=== PATIENT | male | born 1970 | race Caucasian/White ===

== ENCOUNTER 2017-04-25 22:24 | Emergency (ER) | payer SELFPAY ==
[2017-04-25] MEDS ORDERED: ASPIRIN 81 MG TABLET, CHEWABLE PO ONE (22:40)
[2017-04-25 23:13] LABS: ABSOLUTE EOSINOPHILS # (AUTO) 0.1 10^3/uL (0.0-0.6); ABSOLUTE LYMPHOCYTES (AUTO) 1.8 10^3/uL (0.5-4.7); ABSOLUTE MONOCYTES (AUTO) 0.8 10^3/uL (0.1-1.4); ABSOLUTE NEUT (AUTO) 5.8 10^3/uL (1.7-8.2); BASOPHILS % (AUTO) 0.5 % (0-2); EOSINOPHILS % (AUTO) 1.2 % (0-6); HEMATOCRIT 51.9 % (37.9-51.0); HEMOGLOBIN 17.3 g/dL (13.5-17.0); MEAN CORPUSCULAR HEMOGLOBIN 36.7 pg (27.0-33.4); MEAN CORPUSCULAR HGB CONC 33.3 g/dL (32.0-36.0); MEAN CORPUSCULAR VOLUME 110 fl (80-97); MONOCYTES % (AUTO) 9.5 % (3-13); RED BLOOD COUNT 4.72 10^6/uL (4.35-5.55); SEGMENTED NEUTROPHILS % (AUTO) 67.8 % (42-78); WHITE BLOOD COUNT 8.6 10^3/uL (4.0-10.5)
[2017-04-25 23:30] LABS: ALANINE AMINOTRANSFERASE 31 U/L (21-72); ALBUMIN 4.4 g/dL (3.5-5.0); ALKALINE PHOSPHATASE 59 U/L (38-126); ANION GAP 13 (5-19); ASPARTATE AMINO TRANSFERASE 24 U/L (17-59); BILIRUBIN,DIRECT 0.4 mg/dL (0.0-0.4); BILIRUBIN,TOTAL 0.5 mg/dL (0.2-1.3); BLOOD UREA NITROGEN 13 mg/dL (7-20); CALCIUM 9.7 mg/dL (8.4-10.2); CARBON DIOXIDE 25 mmol/L (22-30); CHLORIDE 105 mmol/L (98-107); CREATINE KINASE 82 U/L (55-170); CREATININE RESULT 0.85 mg/dL (0.52-1.25); GLUCOSE 130 mg/dL (75-110); POTASSIUM 4.4 mmol/L (3.6-5.0); SODIUM 142.9 mmol/L (137-145); TOTAL PROTEIN 7.8 g/dL (6.3-8.2)
[2017-04-25 23:40] LABS: CREATINE KINASE MB 0.87 ng/mL (<4.55)
[2017-04-25 23:41] LABS: TROPONIN I < 0.012 ng/mL
--- NOTE | 2017-04-26 00:56 | RADIOLOGY REPORT (SQ) ---
EXAM DESCRIPTION: CHEST SINGLE VIEW COMPLETED DATE/TIME: 04/26/2017 12:35 am REASON FOR STUDY: chest pain COMPARISON: 4.3.11 EXAM PARAMETERS: NUMBER OF VIEWS: One view. TECHNIQUE: Single frontal radiographic view of the chest acquired. RADIATION DOSE: NA LIMITATIONS: None. FINDINGS: LUNGS AND PLEURA: No opacities, masses or pneumothorax. No pleural effusion. MEDIASTINUM AND HILAR STRUCTURES: No masses. Contour normal. HEART AND VASCULAR STRUCTURES: Heart normal in size. Normal vasculature. BONES: No acute findings. HARDWARE: None in the chest. OTHER: No other significant finding. IMPRESSION: NO ACUTE RADIOGRAPHIC FINDING IN THE CHEST. TECHNICAL DOCUMENTATION: JOB ID: [id number]
[2017-04-26] MEDS ORDERED: NORMAL SALINE 1000 ML 1,000 ML IV PRN (01:32)
[2017-04-26] MEDS ORDERED: MAG HYDROX/AL HYDROX/SIMETH SUSP 30 ML UDCUP PO ONE (01:58)
[2017-04-26] MEDS ORDERED: LIDOCAINE 2% VISCOUS SOLN 20 ML UDCUP PO ONE (01:58)
[2017-04-26] MEDS ORDERED: METOCLOPRAMIDE HCL ORAL SOLN 10 MG/10 ML UDCUP PO ONE (01:58)
--- NOTE | 2017-04-26 04:19 | ER Document Report ---
ED General - General Chief Complaint: Chest Pain Stated Complaint: CHEST PAIN Time Seen by Provider: 04/26/17 01:32 TRAVEL OUTSIDE OF THE [place] IN LAST 30 DAYS: No - HPI Patient complains to provider of: Chest pain Notes: Patient coming in for evaluation of chest pain. Patient states started approximately around 9:00 this night for no chest problem patient become diaphoretic. Denies any past heart history denies any medical history does not take any medications. Patient currently states chest pain-free only have an acid reflux. Patient states history of acid reflux which he takes Pepto- Bismol. Patient does smoke denies any alcohol denies any drugs. Patient also denies any fevers chills nausea vomiting diarrhea denies any shortness of breath patient denies any recent travel. - Related Data Allergies/Adverse Reactions: No Known Allergies Allergy (Verified 08/24/12 11:16) Past Medical History - Social History Smoking Status: Unknown if Ever Smoked Family History: Reviewed & Not Pertinent Patient has suicidal ideation: No Patient has homicidal ideation: No - Past Medical History Cardiac Medical History: Reports: Hx Hypercholesterolemia, Hx Hypertension Renal/ Medical History: Denies: Hx Peritoneal Dialysis - Immunizations Hx Diphtheria, Pertussis, Tetanus Vaccination: No Review of Systems - Review of Systems Constitutional: No symptoms reported EENT: No symptoms reported Cardiovascular: Chest pain Respiratory: No symptoms reported Gastrointestinal: No symptoms reported Genitourinary: No symptoms reported Male Genitourinary: No symptoms reported Musculoskeletal: No symptoms reported Skin: No symptoms reported Hematologic/Lymphatic: No symptoms reported Neurological/Psychological: No symptoms reported -: Yes All other systems reviewed and negative Physical Exam - Vital signs Vitals: Temp Pulse Resp BP Pulse Ox 98.2 F 119 H 20 162/90 H 98 04/25/17 22:36 04/25/17 22:36 04/25/17 22:36 04/25/17 22:36 04/25/17 22:36 Interpretation: Normal - General General appearance: Appears well, Alert - HEENT Head: Normocephalic, Atraumatic Eyes: Normal Pupils: PERRL - Respiratory Respiratory status: No respiratory distress Chest status: Nontender Breath sounds: Normal Chest palpation: Normal - Cardiovascular Rhythm: Regular Heart sounds: Normal auscultation Murmur: No - Abdominal Inspection: Normal Distension: No distension Bowel sounds: Normal Tenderness: Nontender Organomegaly: No organomegaly - Back Back: Normal, Nontender - Extremities General upper extremity: Normal inspection, Nontender, Normal color, Normal ROM , Normal temperature General lower extremity: Normal inspection, Nontender, Normal color, Normal ROM , Normal temperature, Normal weight bearing. No: Óscar's sign - Neurological Neuro grossly intact: Yes Cognition: Normal Orientation: AAOx4 [place] Coma Scale Eye Opening: Spontaneous [place] Coma Scale Verbal: Oriented Joanna Coma Scale Motor: Obeys Commands [place] Coma Scale Total: 15 Speech: Normal Motor strength normal: LUE, RUE, LLE, RLE Sensory: Normal - Psychological Associated symptoms: Normal affect, Normal mood - Skin Skin Temperature: Warm Skin Moisture: Dry Skin Color: Normal Course - Re-evaluation Re-evalutation: 04/26/17 04:29 Initial EKG showed sinus tachycardia. Patient's lab work shows signs of dehydration. The initial troponin was negative. Initially want to give the patient IV fluids however he refused patient while waiting for second troponin did continue to drink water second troponin also returned negative. Patient has been asymptomatic during his time here. As reflux has gotten better with GI cocktail. Possible etiology is pain esophageal spasm related to his reflux. Patient he will need a follow-up primary care physician for further evaluation and testing. This time patient repeat EKG shows now a normal sinus rhythm patient will be discharged home. The patient has atypical chest pain as the patient's chest pain is not suggestive of pulmonary embolus, cardiac ischemia, aortic dissection, or other serious etiology. Given the extremely low risk of these diagnoses further testing and evaluation for these possibilities does not appear to be indicated at this time. The patient has been instructed to return if the symptoms worsen or change in any way. - Vital Signs Vital signs: Temp Pulse Resp BP Pulse Ox 98.2 F 119 H 20 162/90 H 98 04/25/17 22:36 04/25/17 22:36 04/25/17 22:36 04/25/17 22:36 04/26/17 01:09 - Laboratory Result Diagrams: 04/25/17 22:58 04/25/17 22:58 Laboratory results interpreted by me: 04/25/17 04/25/17 22:58 22:58 Hgb 17.3 H Hct 51.9 H MCV 110 H MCH 36.7 H Glucose 130 H Discharge - Discharge Clinical Impression: Chest pain unclear etiology Acid reflux Qualifiers: Esophagitis presence: esophagitis presence not specified Qualified Code(s): K21.9 - Gastro-esophageal reflux disease without esophagitis Condition: Good Disposition: HOME, SELF-CARE Instructions: Reflux Disease (GERD) ([facility]), Chest Pain of Unclear Cause ([facility]), Family Physicians / Practices Additional Instructions: Your laboratory studies today EKG did not show any signs of heart damage. Your laboratory studies do show signs of significant dehydration. However recommend she continue to drink plenty water to stay hydrated. Please make sure to follow -up with primary care physician. Return to the ER for worsening of symptoms. We will start you on a medication called Prilosec for acid reflux. Prescriptions: Omeprazole 20 mg PO DAILY #30 capsule.dr Forms: Smoking Cessation Education, Return to Work
[2017-04-26 06:36] VITALS: BP 145/67
--- NOTE | 2017-04-26 11:25 | EKG REPORT ---
SEVERITY:- NORMAL ECG - SINUS RHYTHM : Confirmed by: Tom Kent 26-Apr-2017 11:24:40
--- NOTE | 2017-04-26 11:25 | EKG REPORT ---
SEVERITY:- OTHERWISE NORMAL ECG - SINUS TACHYCARDIA : Confirmed by: Tom Kent 26-Apr-2017 11:24:49
== END 2017-04-26 04:34 | disposition home or self-care (01) ==
LOC: ER 22:24
DX: R07.9 Chest pain, unspecified (principal); K21.9 Gastro-esophageal reflux disease without esophagitis; E78.00 Pure hypercholesterolemia, unspecified; I10 Essential (primary) hypertension
CPT/HCPCS: 93005 ×2; 99285; 36415; 82553; 82550; 85025; 80053; 84484; 71010; 93010 ×2; J3490

== ENCOUNTER 2018-12-20 07:59 | Inpatient (IN) | payer SELFPAY ==
[2018-12-20] MEDS ORDERED: NAPROXEN 250 MG TABLET PO ONE (09:12)
--- NOTE | 2018-12-20 10:00 | ER Document Report ---
ED Medical Screen (RME) - General Chief Complaint: Flu Symptoms Stated Complaint: COUGH Time Seen by Provider: 12/20/18 09:04 Mode of Arrival: Ambulatory Information source: Patient Notes: 48-year-old male presents to ED for flulike symptoms times a week. He states he has been experiencing a nonproductive cough chills, sweats with no improvement. He states he has been taken [id number] medications with no improvement. He denies any other complications. He is alert oriented respirations regular and even speaking in full sentences. He states that his O2 sat upfront was 87 and then they got it at 97. He states he is feeling a little short of breath. I had assessed the man with clear lung sounds sending for chest x-ray and a flu test when the staff came and told me that he was getting more short of breath. I rechecked his O2 sat and it was 86 had him cough and it was still 86 I have upgraded him to be seen by 1 of the providers on the main ED and ordered blood work for him. He states his only medical history is a fractured thumb he was smoking a pack a day until a week ago when he stopped he was also drinking until a week ago when he stopped. I have greeted and performed a rapid initial assessment of this patient. A comprehensive ED assessment and evaluation of the patient, analysis of test results and completion of medical decision making process will be conducted by an additional ED providers. TRAVEL OUTSIDE OF THE [place] IN LAST 30 DAYS: No - Related Data Allergies/Adverse Reactions: No Known Allergies Allergy (Verified 12/20/18 08:01) Past Medical History - Social History Frequency of alcohol use: None Drug Abuse: None - Past Medical History Cardiac Medical History: Reports: Hx Hypercholesterolemia, Hx Hypertension Renal/ Medical History: Denies: Hx Peritoneal Dialysis - Immunizations Hx Diphtheria, Pertussis, Tetanus Vaccination: No Physical Exam - Vital signs Vitals: Temp Pulse Resp BP Pulse Ox 98.8 F 100 18 90/71 L 97 12/20/18 08:04 12/20/18 08:04 12/20/18 08:04 12/20/18 08:04 12/20/18 08:04 Course - Vital Signs Vital signs: Temp Pulse Resp BP Pulse Ox 98.8 F 100 18 105/52 L 97 12/20/18 08:04 12/20/18 08:04 12/20/18 08:04 12/20/18 09:35 12/20/18 08:04
[2018-12-20 10:06] LABS: A TYPE INFLUENZA AG NEGATIVE (NEGATIVE); B INFLUENZA AG NEGATIVE (NEGATIVE)
--- NOTE | 2018-12-20 10:06 | RADIOLOGY REPORT (SQ) ---
EXAM DESCRIPTION: CHEST 2 VIEWS COMPLETED DATE/TIME: 12/20/2018 9:50 am REASON FOR STUDY: cough COMPARISON: Chest films 04/26/2017, 01/26/2011 EXAM PARAMETERS: NUMBER OF VIEWS: two views TECHNIQUE: Digital Frontal and Lateral radiographic views of the chest acquired. RADIATION DOSE: NA LIMITATIONS: none FINDINGS: LUNGS AND PLEURA: Diffuse bilateral upper lobe airspace disease is present worrisome for p neumonia. No pleural effusions. No pneumothorax. MEDIASTINUM AND HILAR STRUCTURES: No masses or contour abnormalities. HEART AND VASCULAR STRUCTURES: Heart normal size. No evidence for failure. BONES: No acute findings. HARDWARE: None in the chest. OTHER: No other significant finding. IMPRESSION: Diffuse bilateral upper lobe airspace disease worrisome for pneumonia. TECHNICAL DOCUMENTATION: JOB ID: [id number] [employer]- All Rights Reserved Reading location - IP/workstation name: [email or web address]
[2018-12-20 10:29] LABS: HEMATOCRIT 42.9 % (37.9-51.0); HEMOGLOBIN 15.3 g/dL (13.5-17.0); MEAN CORPUSCULAR HGB CONC 35.7 g/dL (32.0-36.0); MEAN CORPUSCULAR VOLUME 104 fl (80-97); PLATELET COUNT 113 10^3/uL (150-450); RED BLOOD COUNT 4.13 10^6/uL (4.35-5.55); RED CELL DISTRIBUTION WIDTH 12.3 % (11.5-14.0); WHITE BLOOD COUNT 3.6 10^3/uL (4.0-10.5)
[2018-12-20 10:52] LABS: ALANINE AMINOTRANSFERASE 35 U/L (21-72); ALBUMIN 3.7 g/dL (3.5-5.0); ALKALINE PHOSPHATASE 59 U/L (38-126); ANION GAP 7 (5-19); ASPARTATE AMINO TRANSFERASE 82 U/L (17-59); BILIRUBIN,DIRECT 0.4 mg/dL (0.0-0.4); BILIRUBIN,TOTAL 0.7 mg/dL (0.2-1.3); BLOOD UREA NITROGEN 14 mg/dL (7-20); CALCIUM 8.3 mg/dL (8.4-10.2); CARBON DIOXIDE 31 mmol/L (22-30); CHLORIDE 98 mmol/L (98-107); CREATINE KINASE 1341 U/L (55-170); GLUCOSE 101 mg/dL (75-110); POTASSIUM 3.4 mmol/L (3.6-5.0); SODIUM 135.9 mmol/L (137-145); TOTAL PROTEIN 6.6 g/dL (6.3-8.2)
[2018-12-20 10:54] LABS: ABSOLUTE LYMPHOCYTES# (MANUAL) 0.1 10^3/uL (0.5-4.7); ABSOLUTE NEUTROPHILS# (MANUAL) 3.4 10^3/uL (1.7-8.2); BAND NEUTROPHILS % (MANUAL) 10 % (3-5); BASOPHILS % (MANUAL) 0 % (0-2); EOSINOPHILS % (MANUAL) 0 % (0-6); LYMPHOCYTES % (MANUAL) 2 % (13-45); METAMYELOCYTES % (MANUAL) 1 % (0); MONOCYTES % (MANUAL) 1 % (3-13); SEGMENTED NEUTROPHILS % (MAN) 84 % (42-78); TOTAL CELLS COUNTED 100
[2018-12-20 10:55] LABS: PLATELET COMMENT DECREASED; TOXIC VACUOLATION PRESENT
[2018-12-20 11:01] LABS: CREATINE KINASE MB 4.52 ng/mL (<4.55); TROPONIN I < 0.012 ng/mL
[2018-12-20] MEDS ORDERED: CEFTRIAXONE 1 GM/D5W RTU 1 GM/50 ML RTUPB IV ONE (11:37)
--- NOTE | 2018-12-20 11:43 | ER Document Report ---
ED General - General Chief Complaint: Flu Symptoms Stated Complaint: COUGH Time Seen by Provider: 12/20/18 09:04 Mode of Arrival: Ambulatory Notes: Patient says he began getting sick last Thursday with a cough, mostly nonproductive. It lasted Thursday and and then went away until it came back on yesterday. He is not had a fever. Patient does have a history of 1/2 pack a day cigarette smoking until last week when he "stopped". Denies any chest pains. Denies any abdominal pains. Denies fever. No significant past medical history. No heart disease. In triage, patient's oxygen saturation was noted to be 86%. Patient reports feeling short of breath frequently and getting lightheaded at times. TRAVEL OUTSIDE OF THE [place] IN LAST 30 DAYS: No - Related Data Allergies/Adverse Reactions: No Known Allergies Allergy (Verified 12/20/18 08:01) Past Medical History - General Information source: Patient - Social History Smoking Status: Current Every Day Smoker Frequency of alcohol use: None Drug Abuse: None Family History: Reviewed & Not Pertinent Patient has suicidal ideation: No Patient has homicidal ideation: No - Past Medical History Cardiac Medical History: Reports: Hx Hypercholesterolemia, Hx Hypertension Pulmonary Medical History: Reports: None Denies: Hx COPD - Immunizations Hx Diphtheria, Pertussis, Tetanus Vaccination: No Review of Systems - Review of Systems Notes: REVIEW OF SYSTEMS: CONSTITUTIONAL : Denies fever. EENT: Denies eye, ear, nose or mouth or throat pain or other symptoms. CARDIOVASCULAR: Denies chest pain. RESPIRATORY: See HPI. GASTROINTESTINAL: Denies abdominal pain or nausea, vomiting, or diarrhea. GENITOURINARY: Denies difficulty or painful urinating, urinary frequency, blood in urine. MUSCULOSKELETAL: Denies back or neck pain. Denies joint pain or swelling. SKIN: Denies rash or skin lesions. NEUROLOGICAL: Denies LOC or altered mental status. Denies headache. Denies sensory loss or motor deficits. ALL OTHER SYSTEMS REVIEWED AND NEGATIVE. Physical Exam - Vital signs Vitals: Temp Pulse Resp BP Pulse Ox 98.8 F 100 18 90/71 L 97 12/20/18 08:04 12/20/18 08:04 12/20/18 08:04 12/20/18 08:04 12/20/18 08:04 Interpretation: Hypotensive - 90/71 in triage. - Notes Notes: PHYSICAL EXAMINATION: GENERAL: Well-appearing, in no acute distress. O2 sat 97% on 2 L oxygen. HEAD: Atraumatic, normocephalic. EYES: Pupils equal round and reactive to light, extraocular movements intact. ENT: oropharynx clear without exudates. Moist mucous membranes. NECK: Normal range of motion, supple. LUNGS: Breath sounds clear and equal bilaterally. Very sparse occasional wheeze heard. HEART: Regular rate and rhythm without murmurs. ABDOMEN: Soft, nontender. No guarding or rebound. No masses. BACK: No tenderness throughout entire back. EXTREMITIES: Normal range of motion without pain. NEUROLOGICAL: Normal speech, normal gait. Normal sensory, motor, and reflex exams. Awake, alert, and oriented x3. Cranial nerves normal. PSYCH: Normal mood, normal affect. SKIN: Warm, dry, no rashes. Course - Re-evaluation Re-evalutation: 12/20/18 11:51 Spoke with hospitalist who will admit the patient for pneumonia and hypoxia. 12/20/18 11:53 Patient was also noted to have an elevated CPK. Hospitalist made aware. - Vital Signs Vital signs: Temp Pulse Resp BP Pulse Ox 98.8 F 100 18 105/52 L 97 12/20/18 08:04 12/20/18 08:04 12/20/18 08:04 12/20/18 09:35 12/20/18 08:04 - Laboratory Result Diagrams: 12/20/18 10:14 12/20/18 10:14 Laboratory results interpreted by me: 12/20/18 12/20/18 10:14 10:14 WBC 3.6 L RBC 4.13 L MCV 104 H MCH 37.0 H Plt Count 113 L Seg Neuts % (Manual) 84 H Band Neutrophils % 10 H Lymphocytes % (Manual) 2 L Monocytes % (Manual) 1 L Metamyelocytes % 1 H Abs Lymphs (Manual) 0.1 L Abs Monocytes (Manual) 0.0 L Sodium 135.9 L Potassium 3.4 L Carbon Dioxide 31 H Calcium 8.3 L AST 82 H Creatine Kinase 1341 H - Diagnostic Test Radiology reviewed: Image reviewed, Reports reviewed - Chest x-ray shows bilateral upper lobe airspace disease likely pneumonia. - EKG Interpretation by Wi EKG shows normal: Sinus rhythm Rate: Normal Rhythm: NSR Additional EKG results interpreted by me: 12/20/18 11:52 EKG is essentially normal. Discharge - Discharge Clinical Impression: Pneumonia, Hypoxia, Elevated CPK Condition: Stable Disposition: ADMITTED INPATIENT Admitting Provider: Hospitalist Unit Admitted: [facility]
[2018-12-20] MEDS ORDERED: LEVALBUTEROL HCL NEB 0.63 MG/3 ML AMPUL NEB PRN (12:28)
[2018-12-20] MEDS ORDERED: ACETAMINOPHEN 325 MG TABLET PO PRN (12:28)
[2018-12-20] MEDS ORDERED: NORMAL SALINE 1000 ML 1,000 ML IV PRN ×2 (12:28→16:59)
[2018-12-20] MEDS ORDERED: OXYCODONE-ACETAMINOPHEN 5-325 MG TABLET PO PRN ×2 (12:28→17:01)
[2018-12-20] MEDS ORDERED: IPRATROPIUM/ALBUTEROL 0.5-2.5 MG/3 ML AMPUL NEB PRN (12:28)
[2018-12-20] MEDS ORDERED: ONDANSETRON HCL INJ/PF 4 MG/2 ML SDV IV PRN (12:28)
[2018-12-20] MEDS ORDERED: GUAIFENESIN/D-METHORPHAN (200-20 MG) SYRUP 10 ML PO PRN (12:32)
[2018-12-20] MEDS ORDERED: NORMAL SALINE 1000 ML 1,000 ML IV ONE (13:09)
--- NOTE | 2018-12-20 13:22 | PDOC H&P ---
History of Present Illness Admission Date/PCP: 12/20/18 11:56 Patient complains of: Cough, chills for the last 2 weeks. History of Present Illness: HELIO TORRES JR is a 48 year old male with history of hypertension obesity sleep apnea came to the emergency room With with complaints of cough associated with chills for the last 2 weeks. He did not seek any medical advice try to drink plenty of fluids and try to go back to work. The symptoms are associated with body aches muscle aches on the first day last week is unable to come out of the bed for whole day. Went to work on Thursday felt bad and and went back to work again on the weekend felt okay but this morning. Bad he said he need to come to the hospital for further evaluation. His main concern is the cough is dry cough not complaining of shortness of breath but complaining of chest tightness. He is also complaining of lightheadedness and dizziness. He denies any nausea vomiting diarrhea or constipation. Denies any rashes. Denies any fever. He is a chronic smoker and he said he stopped smoking 1 week ago. He says sometimes he felt so dizzy felt like about to pass out. Past Medical History Cardiac Medical History: Reports: Hyperlipidema, Hypertension Pulmonary Medical History: Reports: None Denies: Chronic Obstructive Pulmonary Disease (COPD) Past Surgical History Past Surgical History: Reports: None Social History Information Source: Patient Smoking Status: Current Every Day Smoker Frequency of Alcohol Use: None Hx Recreational Drug Use: No Drugs: None - Advance Directive Resuscitation Status: Full Code Family History Family History: Reviewed & Not Pertinent Parental Family History Reviewed: Yes - Mother has a history of liver cancer. Children Family History Reviewed: Yes Sibling(s) Family History Reviewed.: Yes Medication/Allergy Home Medications: No Home Medications 1 08/24/12 Oxycodone HCl 5 mg PO Q6H #15 tablet 08/24/12 Omeprazole 20 mg PO DAILY #30 capsule. 04/26/17 Allergies/Adverse Reactions: No Known Allergies Allergy (Verified 12/20/18 08:01) Review of Systems Constitutional: PRESENT: chills, fatigue, headache(s), weakness. ABSENT: fever(s) Eyes: ABSENT: visual disturbances Ears: ABSENT: hearing changes Nose, Mouth, and Throat: ABSENT: mouth pain Cardiovascular: PRESENT: other - Chest tightness Respiratory: PRESENT: cough Gastrointestinal: ABSENT: abdominal pain, constipation, diarrhea, hematemesis, hematochezia, nausea, vomiting Musculoskeletal: PRESENT: muscle weakness Neurological: PRESENT: dizziness, vertigo, weakness Psychiatric: ABSENT: anxiety, depression, homidical ideation, suicidal ideation Physical Exam Vital Signs: Temp Pulse Resp BP Pulse Ox 98.8 F 100 24 H 85/68 L 88 L 12/20/18 08:04 12/20/18 08:04 12/20/18 13:00 12/20/18 13:00 12/20/18 13:00 Intake & Output 12/19/18 12/20/18 12/21/18 06:59 06:59 06:59 Weight 132.4 kg General appearance: PRESENT: mild distress Head exam: PRESENT: atraumatic Eye exam: PRESENT: PERRLA Mouth exam: PRESENT: dry mucosa Neck exam: ABSENT: carotid bruit, JVD, lymphadenopathy, thyromegaly Respiratory exam: PRESENT: clear to auscultation demetrius. ABSENT: rales, rhonchi, wheezes Cardiovascular exam: PRESENT: tachycardia GI/Abdominal exam: PRESENT: normal bowel sounds, soft. ABSENT: distended, guarding, mass, organolmegaly, rebound, tenderness Extremities exam: PRESENT: full ROM. ABSENT: calf tenderness, clubbing, pedal edema Neurological exam: PRESENT: alert, awake, oriented to person, oriented to place, oriented to time, oriented to situation, CN II-XII grossly intact. ABSENT: motor sensory deficit Psychiatric exam: PRESENT: appropriate affect, normal mood. ABSENT: homicidal ideation, suicidal ideation Results Laboratory Results: 12/20/18 10:14 12/20/18 10:14 12/20/18 12/20/18 12/20/18 10:14 10:14 10:14 WBC 3.6 L RBC 4.13 L Hgb 15.3 Hct 42.9 MCV 104 H MCH 37.0 H MCHC 35.7 RDW 12.3 Plt Count 113 L Seg Neutrophils % Not Reportable Lymphocytes % Not Reportable Monocytes % Not Reportable Eosinophils % Not Reportable Basophils % Not Reportable Absolute Neutrophils Not Reportable Absolute Lymphocytes Not Reportable Absolute Monocytes Not Reportable Absolute Eosinophils Not Reportable Absolute Basophils Not Reportable Sodium 135.9 L Potassium 3.4 L Chloride 98 Carbon Dioxide 31 H Anion Gap 7 BUN 14 Creatinine 1.18 Est GFR ( Amer) > 60 Est GFR (Non-Af Amer) > 60 Glucose 101 Lactic Acid 1.6 Calcium 8.3 L Total Bilirubin 0.7 AST 82 H ALT 35 Alkaline Phosphatase 59 Total Protein 6.6 Albumin 3.7 12/20/18 12/20/18 10:14 10:14 Creatine Kinase 1341 H CK-MB (CK-2) 4.52 Troponin I < 0.012 Impressions: Chest X-Ray 12/20/18 09:12 IMPRESSION: Diffuse bilateral upper lobe airspace disease worrisome for pneumonia. Assessment & Plan - Diagnosis (1) Pneumonia Is this a current diagnosis for this admission?: Yes Plan: 12/20/2018 patient is going to be admitted for bilateral upper lobe pneumonia plan to put him in IMCU started on IV fluids normal saline at 75 cc/h we going to give 1 L of normal saline bolus. Started on IV Rocephin 2 g daily, Zithromax 500 mg IV daily. Lactic acid level to be checked. To do the CT of the chest to rule out PE. Negative for flu. Started on Robitussin 10 mL every 6 as needed for cough. Xopenex and ipratropium nebulizations are requested. He was placed on GI prophylaxis and DVT prophylaxis. Cultures are pending sputum cultures are requested. Placed on 2 L oxygen via nasal cannula. (2) Hypoxia Is this a current diagnosis for this admission?: Yes Plan: 12/20/2018 patient came in with hypoxia pulse ox is noted to be 86% on room air in the ER. With oxygen via nasal cannula 2 L pulse ox is improved. Hypoxia most likely secondary to bilateral upper lobe pneumonia. Most likely community- acquired pneumonia. (3) Elevated CPK Is this a current diagnosis for this admission?: Yes Plan: 12/20/2018 elevated CPK levels 1350 most likely secondary to pneumonia. Be going to check the CPK levels every 6 hours started on IV fluids at 75 cc/h is and is also going to receive 1 L of normal saline bolus. (4) Hypotension Is this a current diagnosis for this admission?: Yes Plan: 12/20/2018 patient blood pressure is 85/68 right now and complaining of dizziness and lightheadedness. To going to give 1 L of normal saline bolus then normal saline at 75 cc/h plan to do the CT head without contrast to rule out stroke. Hypertension may be secondary to underlying sepsis. Lactic acid levels are pending. Patient condition is critical. - Time Time Spent: 50 to 70 Minutes Critical Time spent with patient: 25-34 minutes Smoking Cessation Education: over 10 minutes Medications reviewed and adjusted accordingly: Yes Anticipated discharge: Home
[2018-12-20] MEDS ORDERED: ENOXAPARIN SODIUM INJ 40 MG/0.4 ML DISP.SYRIN SUBCUT SCH (13:30)
--- NOTE | 2018-12-20 14:54 | RADIOLOGY REPORT (SQ) ---
EXAM DESCRIPTION: CT HEAD WITHOUT COMPLETED DATE/TIME: 12/20/2018 2:35 pm REASON FOR STUDY: dizziness COMPARISON: None. TECHNIQUE: Axial images acquired through the brain without intravenous contrast. Images reviewed wi th bone, brain and subdural windows. Additional sagittal and coronal reconstructions were generated. Images stored on PACS. All CT scanners at this facility use dose modulation, iterative reconstruction, and/or weight based d osing when appropriate to reduce radiation dose to as low as reasonably achievable (ALARA). [facility]: Dose Right [facility]: CareDose [facility]: Dose Right [facility]: Teradose 4D [facility]: DP7 Digital RADIATION DOSE: CT Rad equipment meets quality standard of care and radiation dose reduction techniq ues were employed. CTDIvol: 53.2 mGy. DLP: 1070 mGy-cm. mGy. LIMITATIONS: None. FINDINGS: VENTRICLES: Normal size and contour. CEREBRUM: No masses. No hemorrhage. No midline shift. No evidence for acute infarction. Normal gra y/white matter differentiation. No areas of low density in the white matter. CEREBELLUM: No masses. No hemorrhage. No alteration of density. No evidence for acute infarction. EXTRAAXIAL SPACES: No fluid collections. No masses. ORBITS AND GLOBE: No intra- or extraconal masses. Normal contour of globe without masses. CALVARIUM: No fracture. PARANASAL SINUSES: No fluid or mucosal thickening. SOFT TISSUES: No mass or hematoma. OTHER: No other significant finding. IMPRESSION: NORMAL BRAIN CT WITHOUT CONTRAST. EVIDENCE OF ACUTE STROKE: NO. COMMENT: Quality ID # [id number]: Final reports with documentation of one or more dose reduction techniques (e.g., Automated exposure control, adjustment of the mA and/or kV according to patient size, use of iterative reconstruction technique) TECHNICAL DOCUMENTATION: JOB ID: [id number] [employer]- All Rights Reserved Reading location - IP/workstation name: [email or web address]
--- NOTE | 2018-12-20 14:59 | RADIOLOGY REPORT (SQ) ---
EXAM DESCRIPTION: CTA CHEST COMPLETED DATE/TIME: 12/20/2018 2:36 pm REASON FOR STUDY: chest pain, shortness of breath; r/o PE COMPARISON: None. TECHNIQUE: CT scan of the chest performed using helical scanning technique with dynamic intravenous contrast injection. Images reviewed with lung, soft tissue and bone windows. Reconstructed coronal and sagittal MPR images reviewed. Additional 3 dimensional post-processing performed to develop Maximal Intensity Projection images (PR P). All images stored on PACS. All CT scanners at this facility use dose modulation, iterative reconstruction, and/or weight based d osing when appropriate to reduce radiation dose to as low as reasonably achievable (ALARA). [facility]: Dose Right [facility]: CareDose [facility]: Dose Right [facility]: Teradose 4D [facility]: [employer] CONTRAST TYPE AND DOSE: contrast/concentration: Isovue 350.00 mg/ml; Total Contrast Delivered: 160.0 ml; Total Saline Delivered: 130.0 ml Contrast bolus adequate for pulmonary arteries and aorta. RENAL FUNCTION: GFR > 60. RADIATION DOSE: CT Rad equipment meets quality standard of care and radiation dose reduction techniq ues were employed. CTDIvol: 19.8 - 36.7 mGy. DLP: 3006 mGy-cm. . LIMITATIONS: None. FINDINGS: LUNGS AND PLEURA: Diffuse airspace disease in both lungs with relative sparing of the left lower lobe. Several coalescing areas with a masslike morphology without evidence of cavitation. No effusions. AORTA AND GREAT VESSELS: No aneurysm. No dissection. HEART: No pericardial effusion. No significant coronary artery calcifications. PULMONARY ARTERIES: No emboli visualized in the main pulmonary arteries or the segmental branches. HILAR AND MEDIASTINAL STRUCTURES: No identified masses or abnormal nodes. HARDWARE: None in the chest. UPPER ABDOMEN: No significant findings. Limited exam. THYROID AND OTHER SOFT TISSUES: No masses. No adenopathy. BONES: No acute or significant finding. 3D MIPS: Confirm above findings. OTHER: No other significant finding. IMPRESSION: 1. No PE. 2. Extensive airspace disease most likely due to pneumonia. Cannot exclude developing septic emboli. Clinical correlation is needed. COMMENT: Quality ID # [id number]: Final reports with documentation of one or more dose reduction techniques (e.g., Automated exposure control, adjustment of the mA and/or kV according to patient size, use of iterative reconstruction technique) TECHNICAL DOCUMENTATION: JOB ID: [id number] [employer]- All Rights Reserved Reading location - IP/workstation name: [email or web address]
[2018-12-20] MEDS ORDERED: ALPRAZOLAM 0.5 MG TABLET PO PRN (16:29)
[2018-12-20 16:40] LABS: CREATINE KINASE MB 5.59 ng/mL (<4.55)
[2018-12-20 16:42] LABS: TROPONIN I < 0.012 ng/mL
[2018-12-20 16:45] VITALS: BP 109/92
[2018-12-20 17:31] LABS: URINE AMPHETAMINES SCREEN NEGATIVE; URINE BARBITURATES SCREEN NEGATIVE; URINE BENZODIAZEPINES SCREEN NEGATIVE; URINE COCAINE SCREEN NEGATIVE; URINE MARIJUANA (THC) SCREEN NEGATIVE; URINE METHADONE SCREEN NEGATIVE; URINE PHENCYCLIDINE SCREEN NEGATIVE
[2018-12-20] MEDS ORDERED: AZITHROMYCIN 500 MG in DEXTROSE 5%-WATER 250 ML IV SCH (18:00)
[2018-12-20] MEDS ORDERED: SODIUM BICARBONATE 8.4% INJ 50 MEQ/50 ML DISP.SYRIN ONE ×3 (19:09→19:20)
[2018-12-20] MEDS ORDERED: EPINEPHRINE INJ 1 MG/10 ML DISP.SYRIN ONE (19:20)
[2018-12-20] MEDS ORDERED: ATROPINE SULFATE INJ 1 MG/10 ML DISP.SYRIN IV ONE (19:20)
[2018-12-20] MEDS ORDERED: CALCIUM GLUCONATE 1000 MG/10 ML INJ IV ONE (19:20)
--- NOTE | 2018-12-20 19:49 | Death Summary ---
Summary Date : 12/20/18 Time of :: 17:25 Autopsy: No Resuscitation Status: Full Code - Final Diagnosis (1) Pneumonia Is this a current diagnosis for this admission?: Yes (2) Hypoxia Is this a current diagnosis for this admission?: Yes (3) Elevated CPK Is this a current diagnosis for this admission?: Yes (4) Hypotension Is this a current diagnosis for this admission?: Yes Hospital Course:: 12/20/2018 7:39 PM FELICIA DANIEL was called around 6:58 pm immediately went to the patient's room found the patient in asystole started on CPR as per ACLS protocol.. given her several doses of AP, 2 doses of sodium bicarb was given, 1 dose of atropine was given, 1 dose of calcium gluconate grams were given we continued to bag the patient because condition was critical no time to intubate the patient with switch the active CPR every 2 minutes check the pulse which was asystole after 20 minutes of active CPR we get a pulse for 10 seconds and he went back to asystole again CPR was started again continues to give a epinephrine every few minutes and code was terminated after 20 minutes of active CPR the robotics specialist shows flat line no pulse no respirations are found patient was pronounced at 7:25 PM .total CPR time is 25 minutes. Went to talk to the s ister explained the situation what happened and what we done to resustitate him and all atempts are unsuccesful , sister understood and verbalized her response , and I requested her if she is interested in autopsy - she said no need for autopsy she aslo told me patient does not have or kids, she is the only closest relative. she agreed for the body to released to home. Pt was pronounced at 7:39 PM.
[2018-12-20] MEDS ORDERED: POTASSIUM CHLORIDE 10 MEQ CAPSULE.ER PO SCH (22:00)
[2018-12-20] MEDS ORDERED: FAMOTIDINE 20 MG TABLET PO SCH (22:00)
[2018-12-21] MEDS ORDERED: AZITHROMYCIN INJ 500 MG VIAL IV SCH (10:00)
[2018-12-21] MEDS ORDERED: NICOTINE 21 MG/24 HR PATCH.TD24 TD SCH (10:00)
[2018-12-21] MEDS ORDERED: CEFTRIAXONE 2 GM/D5W RTU 2 GM/50 ML RTUPB IV SCH (10:00)
[2018-12-21] MEDS ORDERED: ASPIRIN 325 MG TABLET, ENT COATED PO SCH (10:00)
--- NOTE | 2018-12-22 10:18 | EKG REPORT ---
SEVERITY:- NORMAL ECG - SINUS RHYTHM : Confirmed by: Tom Kent 22-Dec-2018 10:18:10
== END 2018-12-20 22:00 | disposition left against medical advice (07) | DRG 871 ==
LOC: ER 07:59 → EH 11:56 → 3S 15:04
PROVIDERS: ADMIT Internal Medicine; ATTEND Internal Medicine
DX: A41.9 Sepsis, unspecified organism (principal); J18.9 Pneumonia, unspecified organism; I10 Essential (primary) hypertension; F17.210 Nicotine dependence, cigarettes, uncomplicated; E78.5 Hyperlipidemia, unspecified; I95.9 Hypotension, unspecified; R74.8 Abnormal levels of other serum enzymes
CPT/HCPCS: 36415; 70450; 71046; 71275; 80053; 80307; 82550; 82553; 82962; 83605; 84484; 85025; 87040; 87077; 87186; 87205; 87804; 92950; 93005; 93010; 99285; J0171; J0456; J0461; J0610; J0696; J3490; J7030; J7060; J7620